=== PATIENT | female | born 1940 | race Caucasian/White ===

== ENCOUNTER 2016-09-25 12:32 | Inpatient (IN) | payer MEDICARE, OTHER ==
[~2016-09-25 12:32] MED LIST: ALEVE220 M3 PO; ASPIR 8181 M1 PO; ASPIR 8181 MG; ASPIR 8181 MG PO; ASPIRIN BUFFER325 M1 PO; ASPIRIN BUFFER325 M2 PO; ASPIRIN325 M3 PO; B-12500 MC1 PO; BENADRYL25 M3 PO; BENTYL20 MG; BENTYL20 MG PO; CALCIUM CARBON600 M2 PO; CALCIUM600 M1 PO; CALCIUM600 MG PO; CLEARLAX119 G1 PO; CLEARLAX119 GM PO; CPAP; CRESTOR5 MG; ECHINACEA 5001 EACH PO; EYE DROPS15 M3 OP; FISH OIL 1,0001 CA; FISH OIL 1,0001 CA1 PO; FISH OIL 1,0001 EA10 PO; FLONASE ALLERG9.9 ML; FLONASE16 GM NS; GRAM-O-LECI1000 MG PO; IBU-200200 MG; IBU-200200 MG PO; IBUPROFEN200 M2 PO; LECITHIN PO; LECITHIN400 M1 PO; LECITHIN400 MG; LEVOTHROID112 MCG; LIPOFLAVONOID C1 TAB; LOVAZA1 GM/CAP PO; METAMUCIL POWD PO; METAMUCIL POWD822 GM; METAMUCIL660 GM PO; MILK OF MAGNESIA PO; MIRALAX12 EA; MIRALAX17 G2 PO; MOBIC15 M2 PO; MUCINEX600 M1 PO; MUCINEX600 MG; MUCINEX600 MG PO; MULTI VITAMIN1 EAC1 PO; MULTIVITAMIN1 TAB; MULTIVITAMINS1 EAC6 PO; MULTIVITAMINS1 EAC7 PO; NORCO 5/325 TAB1 TAB PO; OMEPRAZOLE20 MG; OXYCODONE HCL5 M1 PO; REFRESH TEARS15 M1 OP; ROSUVASTATIN5 MG/TAB PO; SENNA PLUS TAB1 EAC1 PO; SM CALCIUM; SYNTHROID150 MC1 PO; SYNTHROID150 MCG PO; TOVIAZ4 MG/TAB PO; TRIAMTERENE-HC1 EAC3 PO; TRIAMTERENE/HYDR1 EA PO; TUMS200 MG PO; TYLENOL325 M2 PO; ULTRAM50 M1 PO; VITAMIN B12 PO; VITAMIN B122500 MCG PO; VITAMIN C PO; VITAMIN C500 M3 PO; VITAMIN E400 UNI1 PO; XANAX0.5 M1 PO; XANAX0.5 MG
[2016-09-25 13:33] LABS: PROTHROMBIN TIME 11.2 SECONDS (9.0-13.6)
[2016-09-26 06:26] LABS: BASO % 0.5 % (0-2); EOSINOPHIL ABSOLUTE COUNT 0.2 tho/cmm (0.0-0.7); HCT-HEMATOCRIT 36.7 % (34.0-49.0); HGB-HEMOGLOBIN 12.1 gm/dl (12.0-15.5); IMMATURE GRANULOCYTES ABSOLUTE 0.02 tho/cmm (0-0.03); IMMATURE GRANULOCYTES PERCENT 0.3 % (0-0.3); LYMPH % 15.4 % (20-45); LYMPH ABSOLUTE COUNT 1.2 tho/cmm (0.8-4.5); MCH (MEAN CORPUSCULAR HGB) 29.2 pg (28.0-32.0); MCV (MEAN CELL VOLUME) 88.6 fl (82.0-96.0); MEAN PLATELET VOLUME 10.3 cmc (9.4-12.4); MONO % 9.3 % (0-12); MONOCYTE ABSOLUTE COUNT 0.7 tho/cmm (0.0-1.2); NEUTROPHIL ABSOLUTE COUNT 5.5 tho/cmm (1.6-8.0); NEUTROPHIL-AUTOMATED 5.5 tho/cmm (1.6-8.0); NEUTROPHILS % 71.5 % (40-80); PLATELET COUNT 231 tho/cmm (150-450); RED BLOOD COUNT 4.14 mil/cmm (4.00-5.20); RED CELL DISTRIBUTION WIDTH 13.3 % (12.4-16.4); WHITE BLOOD COUNT 7.7 tho/cmm (4.0-10.0)
[2016-09-26 06:42] LABS: ALB/GLOB RATIO 1.1 (0.8-2.0); ALKALINE PHOSPHATASE 52 U/L (33-138); ALT/SGPT 18 U/L (12-78); BILIRUBIN,TOTAL 0.6 mg/dl (0-1.5); BLOOD UREA NITROGEN 13 mg/dl (6-24); CALCIUM 8.1 mg/dl (8.5-10.5); CARBON DIOXIDE-VENOUS 28 mmol/L (22-32); CHLORIDE 100 mmol/l (96-110); CREATININE 0.65 mg/dl (0.50-1.10); GLUCOSE 94 mg/dL (70-110); SODIUM 136 mmol/L (135-145); eGFR VALUE FOR BLACK >90 mL/Min
[2016-09-26 06:48] LABS: ANION GAP 12 mmol/L (0-20); AST/SGOT 13 U/L (10-40); POTASSIUM 4.3 mmol/L (3.7-5.1)
[2016-09-28] MEDS ORDERED: ASPIRIN325 M3 PO (09:14)
[2016-09-28] MEDS ORDERED: ULTRAM50 M1 PO (09:16)
[2016-09-28] MEDS ORDERED: TYLENOL325 M2 PO (09:17)
[2016-09-28] MEDS ORDERED: MILK OF MAGNESIA PO (09:19)
== END 2016-09-28 12:50 | DRG 470 ==
LOC: SHSB 12:32 → PACU 17:20 → 5EA 18:10
PROVIDERS: Internal Medicine; ADMIT Orthopaedic Surgery Orthopaedic Surgery of the Spine
PROC: 0SRD0J9 Replacement of Left Knee Joint with Synthetic Substitute, Cemented, Open Approach (ICD-10-PCS; principal; 2016-09-25)
DX: M17.12 Unilateral primary osteoarthritis, left knee (principal); N39.0 Urinary tract infection, site not specified; I10 Essential (primary) hypertension; K21.9 Gastro-esophageal reflux disease without esophagitis; G47.33 Obstructive sleep apnea (adult) (pediatric); E03.9 Hypothyroidism, unspecified; E78.5 Hyperlipidemia, unspecified; Z85.3 Personal history of malignant neoplasm of breast
CPT/HCPCS: C1713; C1776; C9290; J0690; J1885; J2270; J7030